=== PATIENT | female | born 1945 | race Hispanic/Latino ===

== ENCOUNTER 2022-10-08 10:16 | Emergency (ER) | payer OTHER, MEDICARE ==
[~2022-10-08] VITALS: Ht 157.5 cm; Wt 68.0 kg
[~2022-10-08 10:16] MED LIST: AEC81 PO; ALEN70TA80 PO; GLIP5TAB11 PO; LOSA100T58 PO; METF-446 PO; SIMV40TA59 PO
[2022-10-08] MEDS ORDERED: ALBUTEROL 0.083% 2.5 MG/3 ML INH IH STA (10:35)
[2022-10-08] MEDS ORDERED: IPRATROPIUM 0.5 MG/2.5 ML INH IH STA (10:35)
[2022-10-08 10:41] LABS: BASOPHILS % (AUTO) 0.2 % (0.0-5.0); EOSINOPHILS % (AUTO) 0.7 % (0.0-8.0); HEMATOCRIT 40.7 % (36-48); LYMPHOCYTES % (AUTO) 25.9 % (21.0-51.0); MEAN CORPUSCULAR HEMOGLOBIN 26.2 pg (27.0-33.0); MEAN CORPUSCULAR HGB CONC 31.7 g/dL (32.0-36.0); MEAN CORPUSCULAR VOLUME 82.7 fL (79-99); MONOCYTES % (AUTO) 6.5 % (3.0-13.0); NEUTROPHILS % (AUTO) 66.3 % (40.0-77.0); PLATELET COUNT (AUTO) 212 K/uL (130-400); RED BLOOD CELL COUNT(AUTO) 4.92 MIL/uL (4.00-5.50); RED CELL DISTRIBUTION WIDTH 14.7 % (11.0-15.5); WHITE BLOOD COUNT (AUTO) 8.5 K/uL (4.8-10.8)
[2022-10-08 10:49] LABS: CREATININE 0.9 mg/dL (0.5-1.5); POTASSIUM 3.8 mmol/L (3.5-5.1)
[2022-10-08 10:52] LABS: INR 1.12 (0.85-1.15); PROTHROMBIN TIME 12.1 SEC (9.6-11.6)
[2022-10-08 10:54] LABS: MAGNESIUM 1.2 mg/dL (1.80-2.40); TOTAL PROTEIN, SERUM 7.2 g/dL (6.0-8.3)
[2022-10-08] MEDS ORDERED: SOLU-MEDROL 125MG VIAL IVP ONE (11:00)
[2022-10-08 11:15] LABS: B-TYPE NATRIURETIC PEPTIDE 113 pg/mL (0-100)
[2022-10-08] MEDS ORDERED: PANTOPRAZOLE 40 MG/VIAL IVP STA (11:20)
[2022-10-08] MEDS ORDERED: AUD IH (12:27)
[2022-10-08] MEDS ORDERED: PANT40TA55 PO (12:29)
[2022-10-08 12:43] VITALS: BP 119/58
== END 2022-10-08 12:43 | disposition home or self-care (01) ==
LOC: EDH 10:16
DX: J45.909 Unspecified asthma, uncomplicated (principal); K29.70 Gastritis, unspecified, without bleeding; E11.9 Type 2 diabetes mellitus without complications; Z20.822 Contact with and (suspected) exposure to COVID-19; I10 Essential (primary) hypertension; E78.00 Pure hypercholesterolemia, unspecified; Z79.899 Other long term (current) drug therapy; Z79.82 Long term (current) use of aspirin; Z90.710 Acquired absence of both cervix and uterus; Z79.84 Long term (current) use of oral hypoglycemic drugs; Z98.890 Other specified postprocedural states
CPT/HCPCS: 99285; 83735; 84484; 80053; 83880; 85025; 85610; 36415; 87635; 71045; 96374; 96375; 93005; 94640; C9803; J2930; C9113

== ENCOUNTER 2024-01-29 08:34 | Emergency (ER) | payer OTHER, MEDICARE ==
[~2024-01-29] VITALS: Ht 157.5 cm; Wt 62.6 kg
[~2024-01-29 08:34] MED LIST changes: +AUD IH; -GLIP5TAB11 PO; +GLIP5TAB15 PO; -LOSA100T58 PO; +LOSA100T59 PO; +PANT40TA55 PO
[2024-01-29 08:58] LABS: HEMATOCRIT 43.1 % (36-48); MEAN CORPUSCULAR HEMOGLOBIN 26.4 pg (27.0-33.0); MEAN CORPUSCULAR HGB CONC 32.3 g/dL (32.0-36.0); MEAN CORPUSCULAR VOLUME 81.8 fL (79-99); PLATELET COUNT (AUTO) 218 K/uL (130-400); RED BLOOD CELL COUNT(AUTO) 5.27 MIL/uL (4.00-5.50); RED CELL DISTRIBUTION WIDTH 13.6 % (11.0-15.5); WHITE BLOOD COUNT (AUTO) 7.2 K/uL (4.8-10.8)
[2024-01-29 09:03] LABS: CREATININE 0.8 mg/dL (0.5-1.0); POTASSIUM 4.8 mmol/L (3.5-5.1)
[2024-01-29 09:04] LABS: INR 1.02 (0.85-1.15)
[2024-01-29 09:07] LABS: BILIRUBIN,DIRECT 0.1 mg/dL (0.0-0.3); BILIRUBIN,TOTAL 0.4 mg/dL (0.2-1.0); TOTAL PROTEIN, SERUM 7.6 g/dL (6.0-8.3)
[2024-01-29] MEDS: ADENOSINE 6MG VIAL IV ONE (09:11)
[2024-01-29 09:21] LABS: B-TYPE NATRIURETIC PEPTIDE 100 pg/mL (0-100)
[2024-01-29 10:50] LABS: ADD UA MICROSCOPIC YES; APPEARANCE,URINE CLEAR (CLEAR); BILIRUBIN,URINE NEGATIVE (NEGATIVE); COLOR,URINE COLORLESS (YELLOW); GLUCOSE, URINE (UA) >=1000 mg/dL (NEGATIVE); KETONES,URINE 10 mg/dL (NEGATIVE); LEUKOCYTE ESTERASE ,URINE NEGATIVE Leu/uL (NEGATIVE); NITRATE,URINE NEGATIVE (NEGATIVE); OCCULT BLOOD,URINE NEGATIVE (NEGATIVE); PROTEIN,URINE NEGATIVE (NEGATIVE); UROBILINOGEN,URINE 0.2 mg/dL (0.2-1.0)
[2024-01-29 10:56] LABS: RBC,URINE 0-1 /HPF (0-1); WBC,URINE 0-1 /HPF (0-1)
[2024-01-29 10:58] LABS: BAND NEUTROPHILS % (MANUAL) 2 % (0-2); EOSINOPHILS % (MANUAL) 1 % (1-6); LYMPHOCYTES % (MANUAL) 36 % (22-44); MAN.DIFF COMMENT-IMPRESSION MANUAL DIFFERENTIAL; MONOCYTES % (MANUAL) 5 % (2-9); REACTIVE LYMPHOCYTES 12 % (0-0); SEGMENTED NEUTROPHILS % 44 % (40-70); TOTAL CELLS COUNTED 100
[2024-01-29 10:59] LABS: PLATELET MORPHOLOGY COMMENT ADEQUATE
[2024-01-29 12:18] VITALS: BP 145/75; PULSE 70; RESP 17; O2SAT 98
== END 2024-01-29 12:58 | disposition home or self-care (01) ==
LOC: EDH 08:34
DX: I47.10 Supraventricular tachycardia, unspecified (principal); R07.89 Other chest pain; E11.9 Type 2 diabetes mellitus without complications; E78.00 Pure hypercholesterolemia, unspecified; I10 Essential (primary) hypertension; Z79.82 Long term (current) use of aspirin; Z79.899 Other long term (current) drug therapy; Z90.710 Acquired absence of both cervix and uterus
CPT/HCPCS: 99285; 71045; 80076; 83735; 84484 ×2; 80048; 83880; 85025; 85610; 81001; 36415; 93005 ×2; J0153

== ENCOUNTER → 2024-02-20 | Outpatient (CLI) | payer OTHER, MEDICARE ==
[2024-02-20 16:12] LABS: CREATININE 0.8 mg/dL (0.5-1.0); MAGNESIUM 1.6 mg/dL (1.80-2.40); POTASSIUM 4.2 mmol/L (3.5-5.1)
== END | disposition home or self-care (01) ==
LOC: LAB 12:57
PROVIDERS: ATTEND Internal Medicine Cardiovascular Disease
DX: R00.2 Palpitations (principal)
CPT/HCPCS: 36415; 80048; 83735

== ENCOUNTER → 2024-04-14 | Outpatient (CLI) | payer OTHER, MEDICARE ==
[2024-04-14] MEDS: REGADENOSON 0.4 MG/5 ML PF SYG IVP ONE (11:48)
== END | disposition home or self-care (01) ==
LOC: SHCH 09:34
PROVIDERS: ATTEND Internal Medicine Cardiovascular Disease
DX: R00.2 Palpitations (principal); I47.10 Supraventricular tachycardia, unspecified; R06.00 Dyspnea, unspecified
CPT/HCPCS: 78452; 96374; 93017; J2785; A9500 ×2

== ENCOUNTER → 2024-05-20 | Outpatient (CLI) | payer OTHER, MEDICARE | END | disposition home or self-care (01) | LOC: SHCH 11:04 | PROVIDERS: ATTEND Internal Medicine Cardiovascular Disease | DX: R00.2 Palpitations (principal) | CPT/HCPCS: 93306 ==

== ENCOUNTER → 2024-06-16 | Outpatient (CLI) | payer OTHER, MEDICARE ==
[2024-06-16 16:40] LABS: ALBUMIN 3.9 g/dL (3.5-5.0); BILIRUBIN,TOTAL 0.5 mg/dL (0.2-1.0); CREATININE 0.9 mg/dL (0.5-1.0); MAGNESIUM 1.8 mg/dL (1.80-2.40); POTASSIUM 4.1 mmol/L (3.5-5.1); TOTAL PROTEIN, SERUM 7.2 g/dL (6.0-8.3)
== END | disposition home or self-care (01) ==
LOC: LAB 11:31
PROVIDERS: ATTEND Internal Medicine Cardiovascular Disease
DX: R00.2 Palpitations (principal)
CPT/HCPCS: 36415; 80053; 83735

== ENCOUNTER 2024-07-14 10:00 | Emergency (ER) | payer OTHER, MEDICARE ==
[~2024-07-14] VITALS: Ht 157.5 cm; Wt 63.5 kg
[2024-07-14 10:34] LABS: BASOPHILS # (AUTO) 0.02 K/uL (0.00-0.20); BASOPHILS % (AUTO) 0.2 % (0.0-5.0); EOSINOPHILS # (AUTO) 0.19 K/uL (0.00-0.70); EOSINOPHILS % (AUTO) 2.3 % (0.0-8.0); HEMATOCRIT 43.8 % (36-48); IMMATURE GRANULOCYTE ABSOLUTE 0.03 K/uL (0-1); LYMPHOCYTES # (AUTO) 1.2 K/uL (1.0-4.8); MEAN CORPUSCULAR HEMOGLOBIN 25.9 pg (27.0-33.0); MEAN CORPUSCULAR HGB CONC 31.5 g/dL (32.0-36.0); MEAN CORPUSCULAR VOLUME 82.3 fL (79-99); MONOCYTES # (AUTO) 0.7 K/uL (0.1-1.0); MONOCYTES % (AUTO) 8.7 % (3.0-13.0); NEUTROPHILS # (AUTO) 6.1 K/uL (1.8-7.7); NEUTROPHILS % (AUTO) 73.4 % (40.0-77.0); PLATELET COUNT (AUTO) 199 K/uL (130-400); RED BLOOD CELL COUNT(AUTO) 5.32 MIL/uL (4.00-5.50); RED CELL DISTRIBUTION WIDTH 14.5 % (11.0-15.5); WHITE BLOOD COUNT (AUTO) 8.3 K/uL (4.8-10.8)
[2024-07-14 10:45] LABS: SARS-CoV-2, RNA, NAAT NEGATIVE SARS CoV-2 (NEGATIVE)
[2024-07-14 10:52] LABS: CREATININE 0.9 mg/dL (0.5-1.0); INFLUENZA TYPE A Negative For Type A (NEGATIVE); INFLUENZA TYPE B Negative For Type B (NEGATIVE); POTASSIUM 3.9 mmol/L (3.5-5.1)
[2024-07-14] MEDS: 0.9% NACL 500ML IV.SOLN 500 ML IV ONE (10:52)
[2024-07-14] MEDS: acetaMINOPHEN 325 MG TAB PO ONE (10:52)
[2024-07-14 10:56] LABS: ALBUMIN 4.1 g/dL (3.5-5.0); BILIRUBIN,TOTAL 0.5 mg/dL (0.2-1.0); TOTAL PROTEIN, SERUM 7.8 g/dL (6.0-8.3)
[2024-07-14 11:49] LABS: APPEARANCE,URINE CLEAR (CLEAR); BILIRUBIN,URINE NEGATIVE (NEGATIVE); COLOR,URINE LIGHT-YELLOW (YELLOW); GLUCOSE, URINE (UA) >=1000 mg/dL (NEGATIVE); KETONES,URINE 40 mg/dL (NEGATIVE); LEUKOCYTE ESTERASE ,URINE NEGATIVE Leu/uL (NEGATIVE); NITRATE,URINE NEGATIVE (NEGATIVE); OCCULT BLOOD,URINE NEGATIVE (NEGATIVE); PH,URINE 6.5 (5.0-8.0); PROTEIN,URINE NEGATIVE (NEGATIVE); UROBILINOGEN,URINE 0.2 mg/dL (0.2-1.0)
[2024-07-14 11:51] LABS: ADD UA MICROSCOPIC YES
[2024-07-14 11:53] LABS: RBC,URINE 0-1 /HPF (0-1); SQUAMOUS EPITHELIAL CELL,UR RARE /HPF (0-2); WBC,URINE 0-1 /HPF (0-1)
[2024-07-14] MEDS: guaiFENesin-coDEINE 5 ML SYRUP PO ONE (11:53)
[2024-07-14] MEDS: 0.9%NACL 1000ML 1,000 ML IV ONE (11:53)
[2024-07-14 12:02] VITALS: TEMP 98.3
[2024-07-14 14:35] VITALS: BP 129/71; PULSE 98; RESP 22; TEMP 98.1; O2SAT 97
[2024-07-14] MEDS ORDERED: AZIT250T9 PO (14:38)
[2024-07-14] MEDS ORDERED: [UNRECOGNIZED DRUG - CODE] PO (14:38)
== END 2024-07-14 14:49 | disposition home or self-care (01) ==
LOC: EDH 10:00
DX: J44.9 Chronic obstructive pulmonary disease, unspecified (principal); E11.65 Type 2 diabetes mellitus with hyperglycemia; E78.00 Pure hypercholesterolemia, unspecified; I10 Essential (primary) hypertension; Z79.82 Long term (current) use of aspirin; Z79.899 Other long term (current) drug therapy; Z90.710 Acquired absence of both cervix and uterus; Z20.822 Contact with and (suspected) exposure to COVID-19
CPT/HCPCS: 99285; 71045; 87635; 84484; 80053; 85025; 87040 ×2; 87804 ×2; 83605 ×2; 81001; 36415; 93005; J7040

== ENCOUNTER 2024-07-19 13:20 | Emergency (ER) | payer OTHER, MEDICARE ==
[~2024-07-19] VITALS: Ht 152.4 cm; Wt 59.0 kg
[~2024-07-19 13:20] MED LIST changes: +AZIT250T9 PO; +[UNRECOGNIZED DRUG - CODE] PO
[2024-07-19] MEDS: Solu-medROL 125MG VIAL IVP ONE (13:34)
[2024-07-19 13:53] VITALS: PULSE 88; RESP 24
[2024-07-19 13:53] LABS: BASOPHILS # (AUTO) 0.02 K/uL (0.00-0.20); BASOPHILS % (AUTO) 0.3 % (0.0-5.0); EOSINOPHILS # (AUTO) 0.09 K/uL (0.00-0.70); EOSINOPHILS % (AUTO) 1.2 % (0.0-8.0); HEMATOCRIT 43.5 % (36-48); IMMATURE GRANULOCYTE ABSOLUTE 0.03 K/uL (0-1); LYMPHOCYTES # (AUTO) 1.8 K/uL (1.0-4.8); LYMPHOCYTES % (AUTO) 24.1 % (21.0-51.0); MEAN CORPUSCULAR HEMOGLOBIN 26.3 pg (27.0-33.0); MEAN CORPUSCULAR HGB CONC 32.6 g/dL (32.0-36.0); MEAN CORPUSCULAR VOLUME 80.6 fL (79-99); MONOCYTES # (AUTO) 0.4 K/uL (0.1-1.0); MONOCYTES % (AUTO) 5.7 % (3.0-13.0); NEUTROPHILS % (AUTO) 68.3 % (40.0-77.0); PLATELET COUNT (AUTO) 237 K/uL (130-400); RED CELL DISTRIBUTION WIDTH 14.1 % (11.0-15.5); WHITE BLOOD COUNT (AUTO) 7.3 K/uL (4.8-10.8)
[2024-07-19 13:57] LABS: ABG BASE EXCESS -0.5 mmol/L (-2.0-3.0); ABG HCO3 19.3 mmol/L (21.0-28.0); ABG OXYGEN SATURATION 97.5 % (94.0-98.0); ABG PCO2 21 mmHg (32-45); ABG PH 7.574 (7.350-7.450); CARBON MONOXIDE 0.6 % (0.5-1.5); HHb 2.5; PO2, ARTERIAL BG 87.4 mmHg (83.0-108.0); VENT MODE, BG RA (ROOM AIR)
[2024-07-19] MEDS ORDERED: DILT180C89 PO (13:58)
[2024-07-19] MEDS ORDERED: GLIP10TA16 PO (13:58)
[2024-07-19] MEDS ORDERED: EMPA25TA PO (13:58)
[2024-07-19] MEDS ORDERED: MAGN400T25 PO (13:58)
[2024-07-19] MEDS ORDERED: OMEP40CA21 PO (13:58)
[2024-07-19 14:05] LABS: POTASSIUM 4.1 mmol/L (3.5-5.1)
[2024-07-19 14:06] LABS: INR 1.15 (0.85-1.15); PROTHROMBIN TIME 12.3 SEC (9.6-11.6)
[2024-07-19 14:07] LABS: PARTIAL THROMBOPLASTIN TIME 23.9 SEC (26.3-35.5)
[2024-07-19 14:09] LABS: SARS-CoV-2, RNA, NAAT NEGATIVE SARS CoV-2 (NEGATIVE)
[2024-07-19 14:10] LABS: MAGNESIUM 1.6 mg/dL (1.80-2.40)
[2024-07-19 14:14] LABS: INFLUENZA TYPE A Negative For Type A (NEGATIVE); INFLUENZA TYPE B Negative For Type B (NEGATIVE)
[2024-07-19] MEDS: IpraTROPium/alBUTERol SULFATE 3 ML SOLUTION IH ONE (14:18)
[2024-07-19 14:34] LABS: B-TYPE NATRIURETIC PEPTIDE 24 pg/mL (0-100)
[2024-07-19] MEDS ORDERED: LORA10TA7 PO (15:05)
[2024-07-19] MEDS ORDERED: FLUT16H NS (15:05)
[2024-07-19 15:13] VITALS: O2SAT 93
[2024-07-19 15:14] VITALS: BP 100/78; PULSE 90; RESP 22; TEMP 98.3
[2024-07-19] MEDS: acetaMINOPHEN/coDEINE 120/12MG 5ML PO STA (15:16)
== END 2024-07-19 15:46 | disposition home or self-care (01) ==
LOC: EDH 13:20
DX: J06.9 Acute upper respiratory infection, unspecified (principal); J32.9 Chronic sinusitis, unspecified; E11.9 Type 2 diabetes mellitus without complications; E78.00 Pure hypercholesterolemia, unspecified; I10 Essential (primary) hypertension; J44.9 Chronic obstructive pulmonary disease, unspecified; Z79.82 Long term (current) use of aspirin; Z79.84 Long term (current) use of oral hypoglycemic drugs; Z79.899 Other long term (current) drug therapy; Z90.710 Acquired absence of both cervix and uterus; Z20.822 Contact with and (suspected) exposure to COVID-19
CPT/HCPCS: 99285; 96374; 71045; 87635; 82947; 82550; 83735; 84484; 80048; 82803; 83880; 85025; 85610; 85730; 87804 ×2; 83605; 36415; 93005; 36600; 94640; 82435; 84132; 84295; 85018; J2919